=== PATIENT | female | born 1965 | race Caucasian/White ===

== ENCOUNTER → 2020-07-16 13:13 | Outpatient (CLI) | payer OTHER, SELFPAY ==
--- NOTE | ~2020-07-16 | MM_ITS ---
EXAMINATION: MM screening ravi BI w hemal HISTORY: Screening mammogram; this is reportedly a baseline examination. TECHNIQUE: Craniocaudal and mediolateral oblique 3-D tomosynthesis images were obtained and synthetic 2-D images were generated. CAD analysis was submitted and interpreted. COMPARISON: No prior mammogram is available for comparison at this institution. BREAST PARENCHYMAL COMPOSITION: There are scattered areas of fibroglandular density. FINDINGS: There is asymmetric density in the upper outer right breast. There is also suggestion of a 7 mm mass in the outer mid right breast (craniocaudal Tomosynthesis domo ge 36/80). There are bilateral benign appearing circumscribed intramammary lymph nodes. Otherwise there is no evidence of suspicious mass, calcification, or architectural distortion to sugg est malignancy in either breast. There has been no suspicious interval change. IMPRESSION: 1. Asymmetry and possible 7 mm mass in the upper-outer quadrant of the right breast 2. Diagnostic right mammogram and right breast ultrasound examination are recommended. BI-RADS Category 0: Incomplete: Needs additional imaging evaluation. Reviewed, dictated and finalized at location A. TRICAL/INSTRUMENT TECHNICIAN IMPRESSION: 1. Asymmetry and possible 7 mm mass in the upper-outer quadrant of the right br east 2. Diagnostic right mammogram and right breast ultrasound examination are recom mended. BI-RADS Category 0: Incomplete: Needs additional imaging evaluation.
== END ==
PROVIDERS: Visit Provider Nurse Practitioner Obstetrics & Gynecology
DX: Z12.31 Encounter for screening mammogram for malignant neoplasm of breast (principal); R92.8 Other abnormal and inconclusive findings on diagnostic imaging of breast
CPT/HCPCS: 77063; 77067

== ENCOUNTER 2021-12-15 12:55 | Emergency (ER) | payer BC, SELFPAY ==
[2021-12-15 13:05] VITALS: BP 151/105; PULSE 98; RESP 19; TEMP 36.7; O2SAT 100
--- NOTE | 2021-12-15 15:08 | ED.SKABFB ---
HPI - Skin/Abscess/Foreign Bdy General Chief complaint: Skin/Abscess/Foreign Body <Sonia Flood PA-C - Last Filed: 12/15/21 15:20> Stated complaint: rash <Sonia Flood PA-C - Last Filed: 12/15/21 15:20> Time Seen by Provider: 12/15/21 14:14 <Sonia Flood PA-C - Last Filed: 12/15/21 15:20> Source: patient <Sonia Flood PA-C - Last Filed: 12/15/21 15:20> Mode of arrival: ambulatory <Sonia Flood PA-C - Last Filed: 12/15/21 15:20> Limitations: no limitations <Sonia Flood PA-C - Last Filed: 12/15/21 15:20> History of Present Illness HPI narrative: This is a 56 year old female that presents to the ER for a rash present over the last couple of days. Reports the rash has spread and is itchy. She was camping over the weekend before it started. She has been taking Zyrtec with little relief. No new soaps, lotions or detergents. No known allergies. <Sonia Flood PA-C - Last Filed: 12/15/21 15:20> Related Data Allergies/Adverse reactions: Allergies Allergy/AdvReac Type Severity Reaction Status Date / Time codeine AdvReac Vomiting Verified 12/15/21 13:08 <Sonia Flood PA-C - Last Filed: 12/15/21 15:20> Review of Systems Review of Systems: CONSTITUTIONAL: Denies fever SKIN: Reports rash and itching. <Sonia Flood PA-C - Last Filed: 12/15/21 15:20> All systems reviewed & are unremarkable except as noted in HPI and below <Sonia Flood PA-C - Last Filed: 12/15/21 15:20> PMFSH Past Medical History Medical History: Medical History (Updated 12/15/21 @ 15:19 by Sonia Flood PA-C) No active medical problems <Sonia Flood PA-C - Last Filed: 12/15/21 15:20> Social History Social History: Social History (Updated 12/15/21 @ 15:16 by Sonia Flood PA-C) Substance use: never <Sonia Flood PA-C - Last Filed: 12/15/21 15:20> Exam Narrative: GENERAL: Well-appearing, well-nourished, and in no acute distress. HEAD: Normocephalic, atraumatic. EYES: EOMI. EXTREMITIES: Normal range of motion. No edema. SKIN: Warm, dry. Diffuse papular rash NEURO: No focal deficits. Alert and oriented x3. PSYCH: Normal mood and affect <Sonia Flood PA-C - Last Filed: 12/15/21 15:20> Course PEER FINANCIAL COUNSELOR/PA Physician Supervision For this patient encounter, I reviewed the PEER FINANCIAL COUNSELOR or PA documentation, treatment plan, and medical decision making <Prasanna Anne MD - Last Filed: 12/15/21 19:07> Vital Signs Vital signs: Vital Signs Temperature 98.0 F 12/15/21 13:05 Pulse Rate 98 12/15/21 13:05 Respiratory Rate 19 12/15/21 13:05 Blood Pressure 151/105 H 12/15/21 13:05 Pulse Oximetry 100 12/15/21 13:05 Temperature 98.0 F 12/15/21 13:05 Pulse Rate 98 12/15/21 13:05 Respiratory Rate 19 12/15/21 13:05 Blood Pressure 151/105 H 12/15/21 13:05 Pulse Oximetry 100 12/15/21 13:05 <Sonia Flood PA-C - Last Filed: 12/15/21 15:20> Vital Signs Temperature 98.0 F 12/15/21 13:05 Pulse Rate 98 12/15/21 13:05 Respiratory Rate 19 12/15/21 13:05 Blood Pressure 151/105 H 12/15/21 13:05 Pulse Oximetry 100 12/15/21 13:05 Temperature 98.0 F 12/15/21 13:05 Pulse Rate 98 12/15/21 13:05 Respiratory Rate 19 12/15/21 13:05 Blood Pressure 151/105 H 12/15/21 13:05 Pulse Oximetry 100 12/15/21 13:05 <Prasanna Anne MD - Last Filed: 12/15/21 19:07> MDM - Skin/Abscess/Foreign Bdy MDM Narrative Medical decision making narrative: Patient presents to the emergency department for diffuse, itchy rash. Consistent with likely contact dermatitis. Patient instructed on use of antihistamines and will be started on steroid taper. She is to follow-up with primary care doctor. She was given warnings to return to the ER <Sonia Flood PA-C - Last Filed: 12/15/21 15:20> Critical Care Time Critical Care Time Critical Care Time: No <Sonia Flood PA-C - Last Fi
== END 2021-12-15 15:24 | disposition home or self-care (01) ==
PROVIDERS: Emergency Provider Emergency Medicine
DX: R21 Rash and other nonspecific skin eruption (principal)
CPT/HCPCS: 99283

== ENCOUNTER 2022-02-05 13:18 | Emergency (ER) | payer BC, SELFPAY ==
[2022-02-05 13:25] VITALS: BP 151/104; PULSE 79; RESP 16; TEMP 36.7; O2SAT 99
--- NOTE | 2022-02-05 13:37 | ED.EAR ---
HPI - Ear Problem General Chief complaint: Ear Stated complaint: right ear pain/swelling Time Seen by Provider: 02/05/22 13:37 Source: patient Mode of arrival: ambulatory Limitations: no limitations History of Present Illness HPI Narrative: 56-year-old female presented for complaint of right ear pain and skin lesions for 1 week. She states they started as a few small bumps which she picked at. States it felt like she pulled a hair out of the side of the face. Denies drainage, burning or itching. Site is tender to touch. She has applied witch milena and Neosporin to the site. Denies any other skin lesions. Related Data Allergies Allergy/AdvReac Type Severity Reaction Status Date / Time codeine AdvReac Vomiting Verified 12/15/21 13:08 Review of Systems Review of Systems: CONSTITUTIONAL: Denies body aches, fever, chills, or sweats. EYES: Denies visual changes, redness, or discharge. ENT: Denies rhinorrhea, congestion, sore throat, or otalgia. CARDIOVASCULAR: Denies chest pain, palpitations, or edema. RESPIRATORY: Denies cough or dyspnea. SKIN: reports skin irritation MUSCULOSKELETAL: Denies back pain, joint pain, or myalgia. NEUROLOGIC: Denies headache, numbness, tingling, or weakness. [facility] Past Medical History Medical History No active medical problems Social History Social History Substance use: never Comments At time of signature, I have reviewed and agree with nursing past medical, surgical, social and family history unless otherwise noted. Please see nursing chart for further information. There is no relevant family history pertinent to the presenting complaint Exam Narrative: GENERAL: Well-appearing EYES: PERRLA, conjunctivae clear, and EOMI. ENT: Mucous membranes moist. Oropharynx without edema, erythema or lesions. NECK: Supple. No lymphadenopathy CHEST: Clear to auscultation. No respiratory distress. HEART: Regular rate and rhythm. SKIN: Warm, dry. Right lower ear and pre auricular approx 1.5cm diameter area of skin with mild swelling and erythema; skin appears excoriated, no draining wounds, fluctuance or induration NEURO: Alert and oriented x3. Course Course Emergency Course: Patient is aware of diagnosis, understands and agrees to treatment plan. Anticipatory guidance given. Patient agrees to follow-up as directed and is aware of reasons to seek care at the emergency department. Portions of this record may have been created with voice recognition software Level of Care: Express Care Visit Vital Signs Vital signs: Vital Signs Temperature 98.0 F 02/05/22 13:25 Pulse Rate 79 02/05/22 13:25 Respiratory Rate 16 02/05/22 13:25 Blood Pressure 151/104 H 02/05/22 13:25 Pulse Oximetry 99 02/05/22 13:25 Oxygen Delivery Room Air 02/05/22 13:25 Temperature 98.0 F 02/05/22 13:25 Pulse Rate 79 02/05/22 13:25 Respiratory Rate 16 02/05/22 13:25 Blood Pressure 151/104 H 02/05/22 13:25 Pulse Oximetry 99 02/05/22 13:25 Oxygen Delivery Room Air 02/05/22 13:25 Reviewed Medical Decision Making MDM Narrative Medical decision making narrative: patient looks well, nontoxic; appropriate for initial outpatient treatment; discussed the importance of follow-up, patient agrees. Will give antibiotic for mild soft tissue infection suspect due to picking at the area. Instructed patient to go to nearest ER immediately for any worsening symptoms including but not limited to: fever, spreading rash, pain, sore throat, headache, dizziness, chest pain, trouble breathing, or any symptoms concerning to the patient. Differential Diagnosis Differential Diagnosis: viral exanthema, contact dermatitis, allergic dermatitis, eczema, urticaria, zoster Vital Signs Vital Signs: Vital Signs Temperature 98.0 F 02/05/22 13:25 Pulse Rate 79 02/05/22 13:25 Respiratory Rate
== END 2022-02-05 13:47 | disposition home or self-care (01) ==
PROVIDERS: Emergency Provider Nurse Practitioner Family
DX: L30.9 Dermatitis, unspecified (principal)
CPT/HCPCS: 99213; G0463